=== PATIENT | female | born 1985 | race African-American/Black ===

== ENCOUNTER 2021-06-18 15:19 | Emergency (ER) | payer OTHER, MEDICAID ==
[~2021-06-18] VITALS: Ht 167.6 cm; Wt 143.3 kg
[~2021-06-18 15:19] MED LIST: IBUPROFEN 600600 M1 PO; NOHOMEMEDICATIONS; ZOVIRAX400 MG PO
[2021-06-18] MEDS ORDERED: OMEPRAZOLE 20 M20 M1 PO (15:40)
[2021-06-18] MEDS ORDERED: NORLYDA0.35 MG PO (15:41)
[2021-06-18] MEDS ORDERED: LORATIDINE 10 M10 M1 PO (15:41)
[2021-06-18] MEDS ORDERED: LEXAPRO20 MG PO (15:42)
[2021-06-18] MEDS ORDERED: LISINOPRIL10 MG PO (15:42)
[2021-06-18 16:25] LABS: CALCIUM 8.7 mg/dL (8.5-10.1); CREATININE 0.8 mg/dL (0.6-1.3)
[2021-06-18 16:26] LABS: ABSOLUTE EOSINOPHILS 0.2 thou/uL (0.0-0.7); ABSOLUTE LYMPHOCYTES 3.1 thou/uL (0.8-5.3); ABSOLUTE MONOCYTES 0.3 thou/uL (0.0-1.2); BASOPHILS 0.7 %; EOSINOPHILS 3.7 %; HEMATOCRIT 38.7 % (37.0-47.0); HEMOGLOBIN 12.8 gm/dL (12.0-15.0); LYMPHOCYTES 45.4 %; MCH 24.4 pg (26.0-34.0); MCHC 33.1 g/dL (28.0-37.0); MCV 73.9 fL (80.0-100.0); MONOCYTES 4.9 %; MPV 6.5 fl. (7.2-11.1); NUCLEATED RBCS 0 /100WBC; PLATELET COUNT* 431 thou/uL (150-400); POLYS 45.3 %; RBC 5.23 mil/uL (4.20-5.00); WBC 6.7 thou/uL (4.0-11.0)
[2021-06-18 16:35] LABS: ALBUMIN 3.6 g/dL (3.4-5.0); MAGNESIUM 1.7 mg/dL (1.8-2.4); TOTAL BILIRUBIN 0.5 mg/dL (<0.1-1.0); TOTAL PROTEIN 7.6 g/dL (6.4-8.2)
--- NOTE | 2021-06-18 16:43 | EKG ---
[place] [address] ELECTROCARDIOGRAM REPORT Name: ADDISON HUDSON Room: [facility]#: [id number] Admission: Attend Phys: Discharge: Date of : 87 Date of Service: 06/18/21 1525 Report #: [id number] THIS REPORT FOR: //name// [facility] ED Test Date: 2021-06-18 Test Time: 15:25:01 Pat Name: ADDISON HUDSON Department: Room: Gender: F Wellness Assistant: [facility] : 1985 Requested By: Jonas Carey Order Number: [id number] MD: Royce Ingram Measurements Intervals [place] Rate: 92 P: 16 TX: 150 QRS: 13 QRSD: 135 T: 8 QT: 355 QTc: 440 Interpretive Statements Sinus rhythm Right bundle branch block No previous ECG available for comparison Electronically Signed On 06-18-2021 16:43:42 [employer] by Royce Ingram [email or web address] <ELECTRONICALLY SIGNED> By: Royce Ingram MD, [facility] 06/18/21 1643 1525 1525 Royce Ingram MD, FACC /EPI
[2021-06-18] MEDS ORDERED: HYDROCODON-ACE1 EAC7 PO (17:51)
[2021-06-18 18:45] VITALS: BP 118/75
== END 2021-06-18 18:46 | disposition home or self-care (01) ==
LOC: M.ERS 15:19
PROVIDERS: Emergency Medicine Emergency Medical Services
DX: R07.89 Other chest pain (principal); R47.81 Slurred speech; R09.89 Other specified symptoms and signs involving the circulatory and respiratory systems; J45.909 Unspecified asthma, uncomplicated; Z79.899 Other long term (current) drug therapy